=== PATIENT | male | born 1985 | race Caucasian/White ===

== ENCOUNTER 2019-05-08 08:17 | Emergency (ER) | payer OTHER ==
[~2019-05-08] VITALS: Ht 185.4 cm; Wt 159.5 kg
[2019-05-08] MEDS ORDERED: ONDANSETRON PF 4 MG/2 ML VIAL. ONE (08:42)
[2019-05-08] MEDS ORDERED: KETOROLAC 15 MG/ML VIAL. ONE (08:42)
[2019-05-08] MEDS ORDERED: MORPHINE SULFATE 4 MG/ML DISP.SYRIN. ONE (08:43)
[2019-05-08] MEDS ORDERED: IV NORMAL SALINE 1,000ML 1,000 ML IV ONE (08:45)
[2019-05-08] MEDS ORDERED: ONDANSETRON PF 4 MG/2 ML VIAL. IV ONE (08:45)
[2019-05-08] MEDS ORDERED: KETOROLAC 15 MG/ML VIAL. IV ONE (08:45)
[2019-05-08] MEDS ORDERED: MORPHINE SULFATE 10 MG/ML SYRINGE. IV ONE (08:45)
[2019-05-08 08:58] LABS: BASO # 0.1 x10^3/uL (0.0-0.2); BASO % 1 % (0-3); EOS # 0.2 x10^3/uL (0.0-0.7); EOS % 2 % (0-3); HEMATOCRIT 44.9 % (39.0-53.0); HEMOGLOBIN 15.3 g/dL (13.0-17.5); LYMPH % 32 % (24-48); MEAN CORPUSCULAR HEMOGLOBIN 29 pg (25-35); MEAN CORPUSCULAR HGB CONC 34 g/dL (31-37); MEAN CORPUSCULAR VOLUME 85 fL (79-100); MONO # 0.7 x10^3/uL (0.0-1.1); MONO % 7 % (0-9); NEUT # 5.3 x10^3uL (1.8-7.7); NEUT % 57 % (31-73); PLATELET COUNT 200 x10^3/uL (140-400); RED BLOOD COUNT 5.27 x10^6/uL (4.30-5.70); RED CELL DISTRIBUTION WIDTH 13.7 % (11.5-14.5); WHITE BLOOD COUNT 9.3 x10^3/uL (4.0-11.0)
[2019-05-08] MEDS ORDERED: MORPHINE SULFATE 4 MG/ML DISP.SYRIN. IV ONE (09:00)
[2019-05-08 09:06] LABS: CALCIUM 9.1 mg/dL (8.5-10.1); GFR 86.6; POTASSIUM 3.4 mmol/L (3.5-5.1)
[2019-05-08 09:06] LABS: BACTERIA,URINE 0 /HPF (0-FEW); BILIRUBIN,URINE NEG (NEG); CLARITY,URINE HAZY; COLOR,URINE YELLOW; GLUCOSE,URINE NEG (NEG); NITRITE,URINE NEG (NEG); SQUAMOUS EPITHELIAL CELL,UR OCC /LPF; UROBILINOGEN,URINE 0.2 mg/dL (0.2 mg/dL); WBC,URINE OCC /HPF (0-4)
[2019-05-08 09:07] LABS: HYALINE CASTS, URINE OCC /HPF
[2019-05-08 09:11] LABS: ALBUMIN 3.7 g/dL (3.4-5.0); ALBUMIN/GLOBULIN RATIO 0.9 (1.0-1.7); TOTAL BILIRUBIN 0.3 mg/dL (0.2-1.0); TOTAL PROTEIN 7.8 g/dL (6.4-8.2)
[2019-05-08] MEDS ORDERED: HYDROmorphone PF 1 MG/ML DISP.SYRIN IV ONE ×2 (09:15→10:15)
--- NOTE | 2019-05-08 10:05 | RAD ---
History: Left testicular pain. Realtime ultrasonography of the scrotum was performed. Comparison: None. The bilateral testicles demonstrate homogeneous parenchyma without evidence of mass, cyst, calcification, or increased Doppler flow. The epididymides are normal. The right testicle measures 4.2 x 3.2 x 2.3 cm. The left testicle measures 4.2 x 3.1 x 2.3 cm. No hydrocele or varicocele is seen. 1.1 cm cyst in the head of the left epididymis. Impression: No evidence of testicular torsion. No suspicious mass. 1.1 cm cyst in the head of the left epididymis corresponding to the palpable abnormality reported by the patient. Electronically signed by: Rashid Tavera MD (05/08/2019 10:02 AM) [facility]
--- NOTE | 2019-05-08 11:21 | RAD ---
CT ABDOMEN PELVIS WO CONTRAST INDICATION: Left flank pain EXAM: Noncontrast CT of the abdomen and pelvis. Coronal and sagittal reformatted images were performed. PQRS compliance statement: One or more of the following individualized dose reduction techniques were utilized for this examination: 1. Automated exposure control 2. Adjustment of the mA and/or kV according to patient size 3. Use of iterative reconstruction technique COMPARISON: None FINDINGS: No free air, free fluid, or fluid collection. Lower chest: The visualized lower lungs are aerated. No pleural or pericardial effusion. ABDOMEN: Liver: Liver measures 21 cm craniocaudad. Hepatic steatosis. Gallbladder and biliary: Normal gallbladder without radiopaque stone. Normal caliber bile ducts. Spleen: Normal spleen. Pancreas: The noncontrast pancreas is homogeneous in attenuation without peripancreatic inflammatory changes. Adrenal glands: Normal adrenal glands. Kidneys and ureters: No opaque urinary calculi. Normal kidneys and ureters. GI tract: The stomach is decompressed and poorly evaluated. Normal caliber small bowel and colon. Normal appendix. Vascular structures: Normal caliber abdominal aorta. Lymph nodes: No lymphadenopathy in the abdomen or pelvis. PELVIS: Genitourinary system: Urinary bladder is decompressed. SKELETAL STRUCTURES AND SOFT TISSUES: No fracture or destructive lesion in the visualized skeleton. IMPRESSION: 1. No hydronephrosis or opaque urinary calculi. 2. Hepatomegaly and diffuse hepatic steatosis. Electronically signed by: Rashid Tavera MD (05/08/2019 11:18 AM) [facility]
[2019-05-08 11:55] VITALS: BP 126/73
[2019-05-08] MEDS ORDERED: IOHEXOL 350 MG/ML 100 ML VIAL. IV ONE (12:00)
[2019-05-08] MEDS ORDERED: HYDROcodone/APAP 5/325MG 1 TAB TABLET PO ONE (12:45)
--- NOTE | 2019-05-08 12:47 | RAD ---
CT ANGIOGRAPHY ABD AND PELVIS History: Severe left flank pain, concern for dissection Comparison: None. Technique: After administration of intravenous contrast, helical CT of the abdomen and pelvis was performed from the lung bases through the ischial tuberosities. Coronal and sagittal reconstructions were obtained. 100 mL of Omnipaque 350 were used. One or more of the following dose reduction techniques were utilized: Automated exposure control (AEC), Adjustment of mA and/or kV according to patient size, Use of iterative reconstruction technique such as ASiR, CT scan done according to ALARA and image gently/image wisely Abdomen Findings: The visualized lung bases are clear. The gallbladder, pancreas, spleen, and bilateral adrenal glands are normal. Hepatomegaly and hepatic steatosis. Subtle streaky hypoenhancement along the superior pole of the left kidney. There is no focal renal mass. There is no hydronephrosis. The visualized loops of small bowel are normal. The visualized loops of large bowel are normal. There is no evidence of bowel obstruction. There is no free fluid. There is no mesenteric or retroperitoneal adenopathy. The abdominal aorta is normal in caliber. No aortic dissection. Mild aortoiliac atherosclerotic disease. Pelvis Findings: Urinary bladder is normal. No pelvic free fluid. There is no pelvic or inguinal adenopathy. There is no acute bony abnormality. IMPRESSION: 1. No aortic dissection. No aneurysm. 2. Subtle streaky hypoenhancement along the superior pole of the left kidney, which could be seen with acute pyelonephritis. 3. Hepatomegaly and hepatic steatosis. Electronically signed by: Rashid Tavera MD (05/08/2019 12:43 PM) [facility]
[2019-05-08] MEDS ORDERED: CEPH500T PO (13:05)
[2019-05-08] MEDS ORDERED: OXYC-325 PO (13:05)
--- NOTE | 2019-05-08 13:34 | PHYS DOC ---
Past History Past Medical History: Kidney Stones Past Surgical History: Appendectomy Alcohol Use: Occasionally Drug Use: None Adult General Chief Complaint Chief Complaint: TESTICULAR PAIN OR INJURY HPI HPI Patient is a 33-year-old male presenting with chief complaint of left flank pain woke up with around 7 AM he first started Prolene in his testicle he's been diagnosed with an epididymal cyst by his primary doctor he did take some antibiotics he had some dull pain in his testicle last month antibiotics. Get better, his pain was much better than he woke up today he was having severe left flank pain he said "it feels like somebody is trying to get out from the inside" no nausea or vomiting no fever no chest pain never had this kind of pain before denies any trauma. No numbness or tingling of the arms or legs no bowel or bladder incontinence really not having any trouble urinating. Not really having anterior abdominal pain he points more to his flank area. Symptoms are severe he's never had pain like this before Review of Systems Review of Systems Constitutional: Denies fever or chills [] Eyes: Denies change in visual acuity, redness, or eye pain [] HENT: Denies nasal congestion or sore throat [] Musculoskeletal: Denies back pain or joint pain [] Integument: Denies rash or skin lesions [] Neurologic: All other systems were reviewed and found to be within normal limits, except as documented in this note. Current Medications Current Medications Current Medications Medications (Trade) Dose Ordered Sig/Miguelina Start Time Stop Time Status Last Admin Dose Admin Acetaminophen/ Hydrocodone Bitart (Lortab 5/325) 2 tab 1X ONCE 05/08/19 12:45 05/08/19 12:46 DC 05/08/19 13:07 2 TAB Hydromorphone HCl (Dilaudid) 1 mg 1X ONCE 05/08/19 10:15 05/08/19 10:17 DC 05/08/19 10:18 1 MG Iohexol (Omnipaque 350 Mg/ml) 100 ml 1X ONCE 05/08/19 12:00 05/08/19 12:01 DC 05/08/19 12:07 100 ML Ketorolac Tromethamine (Toradol 15mg Vial) 15 mg STK-MED ONCE 05/08/19 08:42 05/08/19 08:43 DC Morphine Sulfate (Morphine 10mg Syringe) 6 mg 1X ONCE 05/08/19 08:45 05/08/19 08:46 DC Morphine Sulfate (Morphine 4mg Syringe) 6 mg 1X ONCE 05/08/19 09:00 05/08/19 09:01 DC 05/08/19 08:49 6 MG Ondansetron HCl (Zofran) 4 mg STK-MED ONCE 05/08/19 08:42 05/08/19 08:42 DC Sodium Chloride 1,000 ml @ 1,000 mls/hr 1X ONCE 05/08/19 08:45 05/08/19 09:44 DC 05/08/19 08:52 1,000 MLS/HR Allergies Allergies Allergies Coded Allergies Type Severity Reaction Last Updated Verified No Known Drug Allergies 05/08/19 No Physical Exam Physical Exam Constitutional: Well developed, well nourished, no acute distress, non-toxic appearance. [] HENT: Normocephalic, atraumatic, bilateral external ears normal, oropharynx moist, no oral exudates, nose normal. [] Eyes: PERRLA, EOMI, conjunctiva normal, no discharge. [] Neck: Normal range of motion, no tenderness, supple, no stridor. [] Cardiovascular:Heart rate regular rhythm, no murmur [] Lungs & Thorax: Bilateral breath sounds clear to auscultation [] Abdomen: Bowel sounds normal, soft, no tenderness, no masses, no pulsatile masses. [] Skin: Warm, dry, no erythema, no rash. [] Back: There is CVA tenderness on the left : There is a normal testicle there is a palpable mass on the left epididymis. Penis appears normal Extremities: No tenderness, no cyanosis, no clubbing, ROM intact, no edema. [] Neurologic: Alert and oriented X 3, normal motor function, normal sensory function, no focal deficits noted. [] Psychologic: Affect normal, judgement normal, mood normal. [] Current Patient Data Vital Signs Vital Signs Date Time Temp Pulse Resp B/P (MAP) Pulse Ox O2 Delivery O2 Flow Rate FiO2 05/08/19 08:17 97.8 70 24 98 Room Air Lab Results Laboratory Tests Test 05/08/19 08:35 05/08/19 08:38 05/08/19 08:39 Urine Collection Type Unknown Urine Color Yellow Urine Clarity Hazy Urine pH 5.5 Urine Specific [place] >=1.030 Urine Protein Neg (NEG-TRACE) Urine Glucose (UA) Neg mg/dL (NEG) Urine Ketones (Stick) Neg mg/dL (NEG) Urine Blood Neg (NEG) Urine Nitrite Neg (NEG) Urine Bilirubin Neg (NEG) Urine Urobilinogen Dipstick 0.2 mg/dL (0.2 mg/dL) Urine Leukocyte Esterase Neg (NEG) Urine RBC 1-2 /HPF (0-2) Urine WBC Occ /HPF (0-4) Urine Squamous Epithelial Cells Occ /LPF Urine Bacteria 0 /HPF (0-FEW) Urine Hyaline Casts Occ /HPF Urine Mucus Slight /LPF White Blood Count 9.3 x10^3/uL (4.0-11.0) Red Blood Count 5.27 x10^6/uL (4.30-5.70) Hemoglobin 15.3 g/dL (13.0-17.5) Hematocrit 44.9 % (39.0-53.0) Mean Corpuscular Volume 85 fL (79-100) Mean Corpuscular Hemoglobin 29 pg (25-35) Mean Corpuscular Hemoglobin Concent 34 g/dL (31-37) Red Cell Distribution Width 13.7 % (11.5-14.5) Platelet Count 200 x10^3/uL (140-400) Neutrophils (%) (Auto) 57 % (31-73) Lymphocytes (%) (Auto) 32 % (24-48) Monocytes (%) (Auto) 7 % (0-9) Eosinophils (%) (Auto) 2 % (0-3) Basophils (%) (Auto) 1 % (0-3) Neutrophils # (Auto) 5.3 x10^3uL (1.8-7.7) Lymphocytes # (Auto) 3.0 x10^3/uL (1.0-4.8) Monocytes # (Auto) 0.7 x10^3/uL (0.0-1.1) Eosinophils # (Auto) 0.2 x10^3/uL (0.0-0.7) Basophils # (Auto) 0.1 x10^3/uL (0.0-0.2) Sodium Level 143 mmol/L (136-145) Potassium Level 3.4 mmol/L (3.5-5.1) L Chloride Level 105 mmol/L (98-107) Carbon Dioxide Level 28 mmol/L (21-32) Anion Gap 10 (6-14) Blood Urea Nitrogen 12 mg/dL (8-26) Creatinine 1.0 mg/dL (0.7-1.3) Estimated GFR (Cockcroft-Gault) 86.6 BUN/Creatinine Ratio 12 (6-20) Glucose Level 125 mg/dL (70-99) H Calcium Level 9.1 mg/dL (8.5-10.1) Total Bilirubin 0.3 mg/dL (0.2-1.0) Aspartate Amino Transferase (AST) 23 U/L (15-37) Alanine Aminotransferase (ALT) 45 U/L (16-63) Alkaline Phosphatase 73 U/L (46-116) Total Protein 7.8 g/dL (6.4-8.2) Albumin 3.7 g/dL (3.4-5.0) Albumin/Globulin Ratio 0.9 (1.0-1.7) L Troponin I Quantitative < 0.017 ng/mL (0-0.055) Lipase 98 U/L (73-393) EKG EKG []EKG shows a normal sinus rhythm with no STEMI and no ischemia interpreted by me the time of encounter intervals are normal rate is normal Radiology/Procedures Radiology/Procedures PELVIS: Genitourinary system: Urinary bladder is decompressed. SKELETAL STRUCTURES AND SOFT TISSUES: No fracture or destructive lesion in the visualized skeleton. IMPRESSION: 1. No hydronephrosis or opaque urinary calculi. 2. Hepatomegaly and diffuse hepatic steatosis. Electronically signed by: Deana Noe MD (05/08/2019 11:18 AM) [facility] DICTATED AND SIGNED BY: DEANA NOE MD DATE: 05/08/19 1118 []The bilateral testicles demonstrate homogeneous parenchyma without evidence of mass, cyst, calcification, or increased Doppler flow. The epididymides are normal. The right testicle measures 4.2 x 3.2 x 2.3 cm. The left testicle measures 4.2 x 3.1 x 2.3 cm. No hydrocele or varicocele is seen. 1.1 cm cyst in the head of the left epididymis. Impression: No evidence of testicular torsion. No suspicious mass. 1.1 cm cyst in the head of the left epididymis corresponding to the palpable abnormality reported by the patient. Electronically signed by: Deana Noe MD (05/08/2019 10:02 AM) [facility] DICTATED AND SIGNED BY: DEANA NOE MD DATE: 05/08/19 1002 CC: KAYA GARCIA MD; DANIELLE VELEZ MD ~ Impressions: IMPRESSION: 1. No aortic dissection. No aneurysm. 2. Subtle streaky hypoenhancement along the superior pole of the left kidney, which could be seen with acute pyelonephritis. 3. Hepatomegaly and hepatic steatosis. Electronically signed by: Deana Noe MD (05/08/2019 12:43 PM) [facility] DICTATED AND SIGNED BY: DEANA NOE MD DATE: 05/08/19 1243 CC: KAYA GARCIA MD; DANIELLE VELEZ MD ~ Course & Med Decision Making Course & Med Decision Making Pertinent Labs and Imaging studies reviewed. (See chart for details) []33-year-old male with left CVA pain as well as left testicular pain. Initially in the emergency room his primary complaint was testicle pain. We performed a stat ultrasound that was negative for torsion. I noted his urinalysis had a very small amount of red blood cells I did tell him about this finding and the need for follow-up. We performed a CT abdomen and pelvis that was negative acute no kidney stone. Differential at this point in time would include possibly recently passed stone versus epididymitis with referred pain versus herniated disc etc. On reevaluation the patient was feeling better but he did require several doses of IV narcotics to get his pain under control. He said that he has never had any Pain like this it was just totally severe he didn't know if he could handle it. This raise some level of concern for the possibility of aortic dissection but the CT angiogram was negative for that I really have low suspicion for that to begin with. At this point time I think the patient is safe for discharge home at a given a prescription for some pain medication counseled on safe use and I also gave him some antibiotics in case this is epididymitis type pain. I recommended he follow up with his primary care doctor next week for reevaluation of his back pain as well as for consideration of urology referral if this is in deed symptomatically epididymal cyst Dragon Disclaimer Dragon Disclaimer This electronic medical record was generated, in whole or in part, using a voice recognition dictation system. Departure Departure: Impression: Primary Impression: Epididymal cyst Disposition: 01 HOME, SELF-CARE Condition: STABLE Patient Instructions: Back Pain, Adult, [id number] Additional Instructions: take antibiotics and pain meds, see primary doctor next week. see a urologist. Scripts Oxycodone HCl/Acetaminophen (Percocet 5-325 mg Tablet) 1 Each Tablet 1 TAB PO PRN QID PRN for PAIN MDD 4 Tablet(s) for 5 Days, #20 TAB 0 Refills Prov: KAYA GARCIA MD 05/08/19 Cephalexin (CEPHALEXIN) 500 Mg Tablet 1 TAB PO QID for EPIDIDYMITIS, #40 TAB Prov: KAYA GARCIA MD 05/08/19 KAYA GARCIA MD May 08, 2019 13:34
--- NOTE | 2019-05-08 17:42 | EKG ---
[address] [address] Test Date: 2019-05-08 Test Time: 12:27:43 Pat Name: LUIS DANIEL BRIONES Department: Room: Gender: M [employer] Worker: : 1985 Requested By: KAYA GARCIA Order Number: [id number] Reading MD: Measurements Intervals [place] Rate: 68 P: 0 VT: 124 QRS: -30 QRSD: 98 T: 24 QT: 392 QTc: 417 Interpretive Statements SINUS RHYTHM ABNORMAL LEFT AXIS DEVIATION LEFT ANTERIOR FASCICULAR BLOCK ABNORMAL ECG RI6.01 No previous ECG available for comparison
== END 2019-05-08 13:10 | disposition home or self-care (01) ==
LOC: ER 08:17
DX: N50.3 Cyst of epididymis (principal); Z87.442 Personal history of urinary calculi; Z90.49 Acquired absence of other specified parts of digestive tract
CPT/HCPCS: 36415; 74174; 74176; 76870; 80053; 81001; 83690; 84484; 85025; 93005; 96374; 96375; 96376; 99285; J1170; J1885; J2270; J2405; Q9967; J7030

== ENCOUNTER 2019-07-21 12:32 | Emergency (ER) | payer OTHER ==
[~2019-07-21] VITALS: Ht 185.4 cm; Wt 155.7 kg
[~2019-07-21 12:32] MED LIST: CEPH500T PO; OXYC-325 PO
[2019-07-21] MEDS ORDERED: cloNIDine HCL 0.1 MG TABLET PO ONE (12:45)
[2019-07-21] MEDS ORDERED: FAMOTIDINE 20 MG/2 ML VIAL IVP ONE (13:00)
--- NOTE | 2019-07-21 13:12 | RAD ---
CHEST AP ONLY History: Shortness of air Comparison: None. Findings: Single view of the chest is submitted. There is no infiltrate, pneumothorax, or effusion. The pericardial cardiac silhouette is within normal limits in size. Impression: 1. There is no radiographic evidence of acute cardiopulmonary disease. Electronically signed by: Rashid Haji MD (07/21/2019 1:10 PM) [id number]
[2019-07-21 13:14] LABS: BASO % 1 % (0-3); EOS # 0.1 x10^3/uL (0.0-0.7); EOS % 2 % (0-3); HEMATOCRIT 44.6 % (39.0-53.0); LYMPH # 1.9 x10^3/uL (1.0-4.8); LYMPH % 30 % (24-48); MEAN CORPUSCULAR HEMOGLOBIN 29 pg (25-35); MEAN CORPUSCULAR HGB CONC 34 g/dL (31-37); MEAN CORPUSCULAR VOLUME 87 fL (79-100); MONO # 0.5 x10^3/uL (0.0-1.1); MONO % 7 % (0-9); NEUT # 3.9 x10^3uL (1.8-7.7); NEUT % 61 % (31-73); PLATELET COUNT 190 x10^3/uL (140-400); RED BLOOD COUNT 5.14 x10^6/uL (4.30-5.70); RED CELL DISTRIBUTION WIDTH 14.4 % (11.5-14.5); WHITE BLOOD COUNT 6.4 x10^3/uL (4.0-11.0)
[2019-07-21 13:28] LABS: CALCIUM 9.3 mg/dL (8.5-10.1); CREATININE 0.9 mg/dL (0.7-1.3); GFR 97.8; POTASSIUM 3.9 mmol/L (3.5-5.1)
[2019-07-21 13:41] LABS: ALBUMIN 4.1 g/dL (3.4-5.0); ALBUMIN/GLOBULIN RATIO 1.2 (1.0-1.7); TOTAL BILIRUBIN 0.4 mg/dL (0.2-1.0); TOTAL PROTEIN 7.6 g/dL (6.4-8.2)
[2019-07-21] MEDS ORDERED: FAMO-63 PO (13:47)
--- NOTE | 2019-07-21 13:47 | PHYS DOC ---
Past History Past Medical History: No Pertinent History Past Surgical History: Appendectomy Alcohol Use: Rarely Drug Use: None Adult General Chief Complaint Chief Complaint: CHEST PAIN HPI HPI Patient is a 33-year-old male who presents with left-sided chest pain radiating to left arm with tingling in left fingers. Symptoms began yesterday. Patient also reports epigastric pain, and sour taste in his mouth the past 2 days. Denies shortness of breath, cough, fever chills, sweats. No leg pain or swelling. No other acute symptoms or complaints. [] Review of Systems Review of Systems Review of systems as per HPI. All other review of symptoms are negative. All other systems were reviewed and found to be within normal limits, except as documented in this note. Current Medications Current Medications Current Medications Medications (Trade) Dose Ordered Sig/Miguelina Start Time Stop Time Status Last Admin Dose Admin Clonidine HCl (Catapres) 0.2 mg 1X ONCE 07/21/19 12:45 07/21/19 13:11 DC Famotidine (Pepcid Vial) 20 mg 1X ONCE 07/21/19 13:00 07/21/19 13:07 DC 07/21/19 13:16 20 MG Allergies Allergies Allergies Coded Allergies Type Severity Reaction Last Updated Verified No Known Drug Allergies 05/08/19 No Physical Exam Physical Exam Constitutional: Well developed, well nourished, no acute distress, non-toxic appearance. [] HENT: Normocephalic, atraumatic, bilateral external ears normal, oropharynx moist, nose normal. [] Eyes: PERRLA, EOMI, conjunctiva normal. [] Neck: Normal range of motion, no tenderness. [] Cardiovascular:Heart rate regular rhythm, no murmur [] Lungs & Thorax: Bilateral breath sounds clear to auscultation [] Abdomen: Bowel sounds normal, soft, no tenderness, no masses. [] Skin: Warm, dry. [] Back: No tenderness. [] Extremities: No tenderness. [] Neurologic: Alert and oriented X 3, normal motor function, normal sensory function, no focal deficits noted. [] Psychologic: Affect normal, judgement normal, mood normal. [] Current Patient Data Vital Signs Vital Signs Date Time Temp Pulse Resp B/P (MAP) Pulse Ox O2 Delivery O2 Flow Rate FiO2 07/21/19 12:47 98.4 80 18 139/84 (102) 98 Lab Results Laboratory Tests Test 07/21/19 12:38 White Blood Count 6.4 x10^3/uL (4.0-11.0) Red Blood Count 5.14 x10^6/uL (4.30-5.70) Hemoglobin 15.0 g/dL (13.0-17.5) Hematocrit 44.6 % (39.0-53.0) Mean Corpuscular Volume 87 fL (79-100) Mean Corpuscular Hemoglobin 29 pg (25-35) Mean Corpuscular Hemoglobin Concent 34 g/dL (31-37) Red Cell Distribution Width 14.4 % (11.5-14.5) Platelet Count 190 x10^3/uL (140-400) Neutrophils (%) (Auto) 61 % (31-73) Lymphocytes (%) (Auto) 30 % (24-48) Monocytes (%) (Auto) 7 % (0-9) Eosinophils (%) (Auto) 2 % (0-3) Basophils (%) (Auto) 1 % (0-3) Neutrophils # (Auto) 3.9 x10^3uL (1.8-7.7) Lymphocytes # (Auto) 1.9 x10^3/uL (1.0-4.8) Monocytes # (Auto) 0.5 x10^3/uL (0.0-1.1) Eosinophils # (Auto) 0.1 x10^3/uL (0.0-0.7) Basophils # (Auto) 0.0 x10^3/uL (0.0-0.2) Sodium Level 141 mmol/L (136-145) Potassium Level 3.9 mmol/L (3.5-5.1) Chloride Level 102 mmol/L (98-107) Carbon Dioxide Level 28 mmol/L (21-32) Anion Gap 11 (6-14) Blood Urea Nitrogen 11 mg/dL (8-26) Creatinine 0.9 mg/dL (0.7-1.3) Estimated GFR (Cockcroft-Gault) 97.8 BUN/Creatinine Ratio 12 (6-20) Glucose Level 94 mg/dL (70-99) Calcium Level 9.3 mg/dL (8.5-10.1) Magnesium Level Pending Total Bilirubin Pending Aspartate Amino Transferase (AST) Pending Alanine Aminotransferase (ALT) Pending Alkaline Phosphatase Pending Troponin I Quantitative < 0.017 ng/mL (0-0.055) [id number] Natriuretic Peptide Pending Total Protein Pending Albumin Pending Albumin/Globulin Ratio Pending EKG EKG [EKG: Reviewed] Radiology/Procedures Radiology/Procedures [Chest x-ray: No acute cardiopulmonary disease radiology review.] Course & Med Decision Making Course & Med Decision Making Pertinent Labs and Imaging studies reviewed. (See chart for details) [Atypical chest pain with symptoms suggestive of esophagitis with reflux. Heart score is 0. Will place on an acid with instructions to follow-up with PCP. Return precautions reviewed. Patient verbalizes understanding agreement discharge instructions prior to departure.] Dragon Disclaimer Dragon Disclaimer This electronic medical record was generated, in whole or in part, using a voice recognition dictation system. Departure Departure: Impression: Primary Impression: Chest pain Additional Impression: Esophagitis Disposition: HOME, SELF-CARE Condition: STABLE Referrals: DANIELLE VELEZ MD (PCP) Patient Instructions: Chest Pain (Nonspecific), [id number], Esophagitis Additional Instructions: Please take newly prescribed medications as directed and follow-up with your PCP in 2 to 3 days for reevaluation. Avoid spicy foods, caffeine, alcohol, all NSAID use and eating prior to bedtime. Return to the ED if new or worsening symptoms. Scripts Famotidine (PEPCID) 20 Mg Tablet 1 TAB PO BID, #60 TAB 0 Refills Prov: RHINA FERRIS DO 07/21/19 Problem Qualifiers RHINA FERRIS DO Jul 21, 2019 13:47
[2019-07-21 14:10] VITALS: BP 120/69
--- NOTE | 2019-07-21 14:11 | EKG ---
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
== END 2019-07-21 14:14 | disposition home or self-care (01) ==
LOC: ER 12:32
DX: R07.89 Other chest pain (principal); K20.9 Esophagitis, unspecified; Z90.49 Acquired absence of other specified parts of digestive tract
CPT/HCPCS: 36415; 71045; 80053; 83735; 83880; 84484; 85025; 85379; 93005; 96374; 99285; J3490